=== PATIENT | male | born 1960 | race Caucasian/White ===

== ENCOUNTER → 2017-09-08 | Day surgery (SDC) | payer BC ==
[~2017-09-08] VITALS: Ht 200.7 cm; Wt 142.0 kg
[~2017-09-08] MED LIST: AMPICILLIN/SULBAC 3 GM/NS 100 ML IV SCH; ASPI-516 CHEW; CHLORHEXIDINE GLUCONATE 2 % 1 PACK (2 CLOTHS) TOPICAL PRN; FAMOTIDINE 20 MG/2 ML VIAL ONE; FLUT50SP EACH NARE; HYDR-3516 PO; IBUP1TAB7 PO; INSULIN HUMAN REGULAR 1,000 UNITS/10 ML VIAL SQ PRN; LACTATED RINGER'S 1000 ML IV PRN; LEVA500T33 PO; METO1TAB9 PO; METOPROLOL TARTRATE 25 MG TAB PO PRN; MIDAZOLAM HCL 2 MG/2 ML VIAL ONE; PERC10TA27 PO; POVIDONE IODINE 5% (ANTISEPSIS KIT) 4 APPLICATIONS EACH NARE PRN; ROSU1TAB6 PO; SODIUM CHLORID 0.9% 500 ML IV PRN
[2017-09-08 08:23] VITALS: PULSE 89
[2017-09-08 08:45] VITALS: PULSE 70; TEMP 98.2
[2017-09-08 09:25] VITALS: BP 143/86; PULSE 70; RESP 16; O2SAT 98
--- NOTE | 2017-09-08 18:40 | EKG ---
Date Performed: 09/08/2017 Time Performed: 07:03:22 PTAGE: 57 years EKG: Sinus rhythm NORMAL ECG NO PREVIOUS TRACING DOCTOR: Jessica Bennett Interpretating Date/Time 09/08/2017 18:36:04
--- NOTE | 2017-09-14 07:46 | MP ---
cc: TIERRA BOYCE M.D. DATE OF SURGERY 09/08/[address] Tierra Boyce PREOPERATIVE DIAGNOSIS Metastatic squamous carcinoma of lower pharynx. POSTOPERATIVE DIAGNOSIS Metastatic squamous carcinoma of lower pharynx. OPERATION PERFORMED Direct laryngoscopy with biopsy. INDICATIONS Documented in the history and physical. DESCRIPTION OF OPERATION The patient was taken to OR #2 and placed in the supine position. Following induction of general anesthesia and intubation, a shoulder roll and a Juanjose head drape were put in place. Using a Dedo laryngoscope the hypopharynx and larynx were brought into view. There were no lesions of the pharynx but there was a large exophytic lesion involving the inferior pole of the right tonsil. This was biopsied in three locations which were submitted for histological examination. Inspection of the remainder of the aerodigestive tract showed no evidence of neoplastic lesions. The scope was then removed the procedure was terminated. The patient was reversed from anesthesia and taken to Recovery in good condition. There were no complications. Blood loss 20 mL. MD JEANNIE Wolfe/OLI /6:49 AM /8:11 AM
== END | disposition home or self-care (01) ==
LOC: PHSDC 06:11
PROVIDERS: ATTEND Otolaryngology
DX: C32.9 Malignant neoplasm of larynx, unspecified (principal); J35.8 Other chronic diseases of tonsils and adenoids; I10 Essential (primary) hypertension
CPT/HCPCS: 00320; 31535; 88305; 93005; J0295; J2250; J3010; J7120; 88304